=== PATIENT | female | born 1965 | race Caucasian/White ===

== ENCOUNTER → 2016-07-15 | Outpatient (CLI) | payer OTHER ==
[2016-07-15 09:37] LABS: MEAN CORPUSCULAR HEMOGLOBIN 31.5 pg (27.0-33.0); MEAN CORPUSCULAR HGB CONC 34.1 g/dl (32.0-36.5); MEAN CORPUSCULAR VOLUME 92.6 fl (80.0-96.0); WHITE BLOOD COUNT 7.7 K/mm3 (4.0-10.0)
[2016-07-15 10:34] LABS: ALBUMIN 3.7 GM/DL (3.2-5.2); ALBUMIN/GLOBULIN RATIO 1.06 (1.00-1.93); ALKALINE PHOSPHATASE 97 U/L (45-117); ALT/SGPT 18 U/L (12-78); ANION GAP 8 MEQ/L (8-16); AST/SGOT 15 U/L (15-37); BILIRUBIN,TOTAL 0.4 MG/DL (0.2-1.0); BLOOD UREA NITROGEN 18 MG/DL (7-18); CALCIUM LEVEL 8.6 MG/DL (8.5-10.1); CARBON DIOXIDE LEVEL 30 MEQ/L (21-32); CHLORIDE LEVEL 105 MEQ/L (98-107); CHOLESTEROL LEVEL 171 MG/DL (<200); CREATININE FOR GFR 0.83 MG/DL (0.55-1.02); GLOMERULAR FILTRATION RATE > 60.0 (>58); GLUCOSE, FASTING 85 MG/DL (70-105); POTASSIUM SERUM 4.8 MEQ/L (3.5-5.1); SODIUM LEVEL 143 MEQ/L (136-145); TOTAL PROTEIN 7.2 GM/DL (6.4-8.2); TRIGLYCERIDES LEVEL 49 MG/DL (<150)
== END ==
LOC: M WUC 08:15
PROVIDERS: ATTEND Nurse Practitioner Adult Health
DX: Z00.00 Encounter for general adult medical examination without abnormal findings (principal); E55.9 Vitamin D deficiency, unspecified

== ENCOUNTER → 2016-08-19 | Outpatient (CLI) | payer OTHER ==
[2016-08-19 10:59] LABS: BASO % 0.5 % (0.0-1.0); EOS # 0.2 K/mm3 (0.0-0.50); EOS % 1.8 % (0.0-3.0); LARGE UNSTAINED CELL # 0.2 K/mm3 (0.0-0.4); LARGE UNSTAINED CELL % 2.3 % (0.0-4.0); LYMPH # 2.5 K/mm3 (1.5-4.5); MEAN CORPUSCULAR HEMOGLOBIN 32.2 pg (27.0-33.0); MEAN CORPUSCULAR HGB CONC 34.3 g/dl (32.0-36.5); MEAN CORPUSCULAR VOLUME 93.9 fl (80.0-96.0); MONO # 0.5 K/mm3 (0.0-0.8); MONO % 5.2 % (0.0-5.0); NEUTROPHILS # 5.2 K/mm3 (1.8-7.7); NEUTROPHILS % 61.1 % (36.0-66.0); PLATELET COUNT, AUTOMATED 262 k/mm3 (150-450); RED CELL DISTRIBUTION WIDTH 12.4 % (11.5-14.5); WHITE BLOOD COUNT 8.5 K/mm3 (4.0-10.0)
[2016-08-19 11:24] LABS: ANION GAP 5 MEQ/L (8-16); BLOOD UREA NITROGEN 12 MG/DL (7-18); CALCIUM LEVEL 8.6 MG/DL (8.5-10.1); CARBON DIOXIDE LEVEL 31 MEQ/L (21-32); CHLORIDE LEVEL 105 MEQ/L (98-107); CREATININE FOR GFR 0.74 MG/DL (0.55-1.02); GLOMERULAR FILTRATION RATE > 60.0 (>58); GLUCOSE, FASTING 90 MG/DL (70-105); POTASSIUM SERUM 4.6 MEQ/L (3.5-5.1); SODIUM LEVEL 141 MEQ/L (136-145)
== END ==
LOC: M WUC 09:41
PROVIDERS: ATTEND Podiatrist
DX: Z01.812 Encounter for preprocedural laboratory examination (principal); M71.371 Other bursal cyst, right ankle and foot

== ENCOUNTER → 2016-09-03 | Day surgery (SDC) | payer OTHER ==
[~2016-09-03] VITALS: Ht 162.6 cm; Wt 73.5 kg
[~2016-09-03] MED LIST: BACITRACIN PWD 50,000 UNITS VIAL As Ordered ONE; BUPIVACAINE HCL 0.5% 30 ML VIAL As Ordered ONE; LIDOCAINE 2% INJ 100 MG/5 ML SDV (FOR ANES.) As Ordered ONE; LIDOCAINE 2% MDV 20 ML VIAL As Ordered ONE; LR 1,000 ML IV ONE; LR 1,000 ML IV SCH; MIDAZOLAM INJ 2 MG/2 ML VIAL (J2250) As Ordered ONE; MIDAZOLAM INJ 2 MG/2 ML VIAL (J2250) IV PRN; NEOSPORIN GU IRRIG 20 ML VIAL As Ordered ONE; ONDANSETRON 4MG/2ML VIAL (J2405) As Ordered ONE; ONDANSETRON 4MG/2ML VIAL (J2405) IV PRN; PERCOCET 5MG/325MG TAB PO PRN; PROPOFOL 500 MG/50 ML VIAL As Ordered ONE; dexameTHASONE 4 MG/ML 1ML VIAL (J1100) As Ordered ONE; fentaNYL 100 MCG/2 ML INJECTION (J3010) As Ordered ONE; fentaNYL 100 MCG/2 ML INJECTION (J3010) IV PRN
[2016-09-03 08:56] LABS: CONTROL LINE UCG INT CTR LINE PRESENT
[2016-09-03 13:45] VITALS: BP 133/84
--- NOTE | 2016-09-03 13:50 | REP ---
RIGHT FOOT SERIES: Three views. HISTORY: Postop. FINDINGS: Three views of the right foot obtained through overlying dressing demonstrate two pins in place transfixing the distal first metatarsal osteotomy in position. The patient status post bunion repair. Adjacent soft tissue swelling and postoperative emphysema is seen. Signed by Ismael Lee MD 09/03/2016 03:06 P
--- NOTE | 2016-09-05 08:58 | RO ---
DATE OF PROCEDURE: 09/03/2016 PREPROCEDURE DIAGNOSES: 1. Hallux limitus deformity right foot. 2. Mucinoid/ganglionic cyst second toe right foot. 3. 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 POSTPROCEDURE DIAGNOSES: 1. Hallux limitus deformity right foot. 2. Mucinoid/ganglionic cyst second toe right foot. 3. 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 PROCEDURE: 1. Cheilectomy first metatarsal phalangeal joint right foot with Hohmann osteotomy with plantar flexion and transverse location with internal screw fixation 3.0 mm x 18 mm x 1 and a 3.0 x 20 mm x 1. 2. Excision of ganglionic cyst second toe right foot. 3. Distal interphalangeal joint arthroplasty second toe right foot. SURGEON: Uriah Alexander DPM STRUCTURES ASSEMBLER: None. ANESTHESIA: Local MAC converted to general anesthesia. HARDWARE UTILIZED: [place] Dart-Fire 3.0 x 18 and 3.0 x 20 mm screw. DESCRIPTION OF OPERATION: On 09/03/2016, this 50-year-old white female was taken from her hospital room to the operating room and placed on the operating room table in supine position. Following the induction of IV sedation and local and regional anesthesia, the following procedure was performed: CHEILECTOMY FIRST METATARSAL PHALANGEAL JOINT RIGHT FOOT: Attention was directed to the patient's right foot where there was noted to be a hallux limitus deformity. At this time, a 5 cm incision was placed over the first metatarsal phalangeal joint of the right foot. The incision was deepened through the subcutaneous tissues and all coursing venous tributaries were identified, underscored, clamped, cut, ligated, electrocoagulated as necessary. A linear capsulotomy was then performed in the same plane as the original skin incision and capsule and periosteal structures were dissected free exposing spurring over the dorsal aspect of the first metatarsal phalangeal joint. Utilizing a power saw, the dorsal 20% of the spurring around the dorsal aspect of the first metatarsal was resected. The medial eminence was also resected with a power saw medial to the sesamoidal groove from distal to proximal through and through. Attention was then directed into the intermetatarsal space where dissection was carried down to the level of the conjoined tendon which was released. The wound was flushed with copious amounts of dilute bacitracin, neomycin and polymyxin B solution. Attention was then directed to the first metatarsal where an osteotomy was performed just proximal to the plantar articular cartilage through and through. The capital fragment was plantar flexed 2 mm and transposed approximately 40% of the width of the shaft of the first metatarsal and fixated with two cannulated compression screws 3.0 x 18 and 3.0 x 20 mm screw. They did penetrate the inferior cartilage on direct visualization. The osteotomy was noted to be stable in all three cardinal planes. The redundant cortical spike was then osteotomized from dorsal to plantar through and through and rasped smooth with a hand held rasp. Attention was then directed toward closure where the capsular structures were coapted and maintained using #3-0 Vicryl in a simple interrupted type fashion. Subcutaneous tissues were coapted and maintained using #4-0 Monocryl in a simple interrupted type fashion. Skin incision coapted and maintained using #5-0 Monocryl in a continuous subcuticular type fashion. Attention was then directed to the patient's second toe of the right foot where the following procedure was performed: EXCISION OF GANGLIONIC CYST DORSAL SURFACE SECOND TOE RIGHT FOOT: Attention was noted where there was a ganglionic/mucinoid cyst of the second toe at the distal interphalangeal joint. Two semi-elliptical incisions were placed around this ganglionic cyst and dissection was carried down to the level of the tendinous structures and this ganglionic cyst was removed. The following procedure was performed: DISTAL INTERPHALANGEAL JOINT ARTHROPLASTY SECOND TOE RIGHT FOOT: The excision was then extended on the previously placed excision allowing exposure to the distal interphalangeal joint. A transverse tenotomy and capsulotomy was then performed identifying the distal interphalangeal joint. Utilizing a power saw, an osteotomy was performed through the mid shaft of the middle phalanx from dorsal to plantar and this was extirpated from the wound. The wound was flushed with copious amounts of dilute bacitracin, neomycin and polymyxin B solution. The cartilage on the base of the distal phalanx was similarly osteotomized from dorsal to plantar. The extensor tendon to the second toe was then repaired with a four stranded braided loop suture with a four stranded core repair with a modified Lopez stitch. The skin was coapted and maintained using #4-0 Prolene in a simple interrupted and horizontal mattress type fashion. Following the completion of the surgical procedure, 4 mg of dexamethasone sodium phosphate 1 mL was instilled proximal to the surgical site. Attention was directed towards bandaging where a sterile compressive bandage was applied consisting of Adaptic, 4x4s, 4x4 splints, Jens, Kerlix and Coban. The ankle pneumatic tourniquet was rapidly deflated and instantaneous capillary filling time was noted to digits of 1 through 5 of the patient's right foot. The patient having apparently tolerated the surgical procedure well was taken from the operating room (OR) to the recovery room with vital signs stable and the patient afebrile for further monitoring by the anesthesia department. All surgical specimens removed during the operative procedure were sent to pathology for gross and microscopic examination. Postoperative instructions will be given upon discharge.
== END | disposition home or self-care (01) ==
LOC: M SDC 08:15
PROVIDERS: ATTEND Podiatrist
DX: M20.5X1 Other deformities of toe(s) (acquired), right foot (principal); M67.471 Ganglion, right ankle and foot; M20.41 Other hammer toe(s) (acquired), right foot; K21.9 Gastro-esophageal reflux disease without esophagitis; Z88.2 Allergy status to sulfonamides
CPT/HCPCS: 28092; 28285; 28289; 73630; 84703; 88300; 88304; 97116; C1713; J0690; J1100; J2250; J2405; J3010

== ENCOUNTER → 2016-12-21 | Outpatient (REF) | payer OTHER | LOC: M SFHCPLAZ 13:18 | PROVIDERS: ATTEND Nurse Practitioner Adult Health | DX: Z12.4 Encounter for screening for malignant neoplasm of cervix (principal) ==

== ENCOUNTER → 2017-03-11 | Outpatient (CLI) | payer OTHER ==
[2017-03-11 10:05] LABS: BASO # 0.1 10^3/uL (0.0-0.2); BASO % 0.7 % (0.0-1.0); EOS # 0.1 10^3/uL (0.0-0.50); EOS % 1.5 % (0.0-3.0); IMMATURE GRANULOCYTE % 0.4 % (0-0); LYMPH # 2.7 10^3/uL (1.5-4.5); LYMPH % 31.5 % (24.0-44.0); MEAN CORPUSCULAR HEMOGLOBIN 30.8 pg (27.0-33.0); MEAN CORPUSCULAR HGB CONC 33.8 g/dl (32.0-36.5); MEAN CORPUSCULAR VOLUME 91.1 fl (80.0-96.0); MONO # 0.6 10^3/uL (0.0-0.8); NEUTROPHILS # 5.1 10^3/uL (1.8-7.7); NEUTROPHILS % 58.9 % (36.0-66.0); PLATELET COUNT, AUTOMATED 289 10^3/uL (150-450); RED CELL DISTRIBUTION WIDTH 11.9 % (11.5-14.5); WHITE BLOOD COUNT 8.6 10^3/uL (4.0-10.0)
[2017-03-11 10:19] LABS: ANION GAP 8 MEQ/L (8-16); BLOOD UREA NITROGEN 14 MG/DL (7-18); CARBON DIOXIDE LEVEL 30 MEQ/L (21-32); CHLORIDE LEVEL 103 MEQ/L (98-107); CREATININE FOR GFR 0.85 MG/DL (0.55-1.02); GLOMERULAR FILTRATION RATE > 60.0 (>58); GLUCOSE, FASTING 89 MG/DL (70-105); POTASSIUM SERUM 3.8 MEQ/L (3.5-5.1); SODIUM LEVEL 141 MEQ/L (136-145)
--- NOTE | 2017-03-11 14:49 | ECGEPIP ---
Stationary ECG Study [facility] Test Date: 2017-03-11 Pat Name: SITA ALVAREZ Department: Room: - Gender: F Machine Ii Cutter: RUBA : 1965 Requested By: Uriah Alexander Order Number: [id number] Reading MD: Eligio Dalal Measurements Intervals [place] Rate: 89 P: 3 RI: 170 QRS: -11 QRSD: 85 T: -21 QT: 342 QTc: 417 Interpretive Statements SINUS RHYTHM MINIMAL VOLTAGE CRITERIA FOR LVH, CONSIDER NORMAL VARIANT POOR R WAVE PROGRESSION No prior tracing in the system Electronically Signed On 03-11-2017 14:49:20 EST by Eligio Dalal
== END ==
LOC: M LAB 09:12
PROVIDERS: ATTEND Podiatrist
DX: M20.62 Acquired deformities of toe(s), unspecified, left foot (principal)

== ENCOUNTER 2017-03-25 10:43 | Day surgery (SDC) | payer OTHER ==
[~2017-03-25] VITALS: Ht 162.6 cm; Wt 77.2 kg
[~2017-03-25 10:43] MED LIST changes: -BACITRACIN PWD 50,000 UNITS VIAL As Ordered ONE; -BUPIVACAINE HCL 0.5% 30 ML VIAL As Ordered ONE; +CLAR1TAB2 PO; -LIDOCAINE 2% INJ 100 MG/5 ML SDV (FOR ANES.) As Ordered ONE; -LIDOCAINE 2% MDV 20 ML VIAL As Ordered ONE; -LR 1,000 ML IV ONE; -LR 1,000 ML IV SCH; -MIDAZOLAM INJ 2 MG/2 ML VIAL (J2250) As Ordered ONE; -MIDAZOLAM INJ 2 MG/2 ML VIAL (J2250) IV PRN; -NEOSPORIN GU IRRIG 20 ML VIAL As Ordered ONE; -ONDANSETRON 4MG/2ML VIAL (J2405) As Ordered ONE; -ONDANSETRON 4MG/2ML VIAL (J2405) IV PRN; -PERCOCET 5MG/325MG TAB PO PRN; -PROPOFOL 500 MG/50 ML VIAL As Ordered ONE; -dexameTHASONE 4 MG/ML 1ML VIAL (J1100) As Ordered ONE; -fentaNYL 100 MCG/2 ML INJECTION (J3010) As Ordered ONE; -fentaNYL 100 MCG/2 ML INJECTION (J3010) IV PRN
[2017-03-25] MEDS ORDERED: LR 1,000 ML IV ONE (11:00)
[2017-03-25 12:04] LABS: CONTROL LINE UCG INT CTR LINE PRESENT
[2017-03-25] MEDS ORDERED: BACITRACIN PWD 50,000 UNITS VIAL As Ordered ONE (13:34)
[2017-03-25] MEDS ORDERED: LIDOCAINE 2% MDV 20 ML VIAL As Ordered ONE (13:35)
[2017-03-25] MEDS ORDERED: dexameTHASONE 4 MG/ML 1ML VIAL (J1100) As Ordered ONE (13:35)
[2017-03-25] MEDS ORDERED: BUPIVACAINE HCL 0.5% 30 ML VIAL As Ordered ONE (13:36)
[2017-03-25] MEDS ORDERED: NEOSPORIN GU IRRIG 20 ML VIAL As Ordered ONE (13:37)
[2017-03-25] MEDS ORDERED: PROPOFOL 200 MG/20 ML VIAL As Ordered ONE (14:00)
[2017-03-25] MEDS ORDERED: MIDAZOLAM INJ 2 MG/2 ML VIAL (J2250) As Ordered ONE (14:00)
[2017-03-25] MEDS ORDERED: fentaNYL 100 MCG/2 ML INJECTION (J3010) As Ordered ONE (14:00)
[2017-03-25] MEDS ORDERED: LIDOCAINE 2% INJ 100 MG/5 ML SDV (FOR ANES.) As Ordered ONE (14:00)
[2017-03-25] MEDS ORDERED: ONDANSETRON 4MG/2ML VIAL (J2405) As Ordered ONE (14:00)
[2017-03-25] MEDS ORDERED: METOCLOPRAMIDE INJ 10MG/2ML VIAL (J2765) As Ordered ONE (14:00)
[2017-03-25] MEDS ORDERED: KETOROLAC 60 MG/2 ML VIAL (J1885) As Ordered ONE (15:41)
[2017-03-25] MEDS ORDERED: ONDANSETRON 4MG/2ML VIAL (J2405) IV PRN (16:15)
[2017-03-25] MEDS ORDERED: PERCOCET 5MG/325MG TAB PO PRN (16:15)
[2017-03-25] MEDS ORDERED: LR 1,000 ML IV SCH (16:15)
[2017-03-25 17:26] VITALS: BP 172/90
--- NOTE | 2017-03-25 17:30 | REP ---
PORTABLE LEFT FOOT THREE VIEWS: HISTORY: Post-op. The patient is status-post osteotomy of the 1st and 2nd metatarsals. Metal screws are present in the heads of the first and second metatarsals. There is no acute fracture or dislocation. There is narrowing of the first tarsal metatarsal joint space. A plastic cast is present. IMPRESSION:The patient is status-post osteotomy of the 1st and 2nd metatarsals. Signed by Mendez Worley MD 03/25/2017 06:51 P
[2017-03-25] MEDS ORDERED: DESFLURANE 240 ML INHALANT As Ordered ONE (20:56)
[2017-03-25] MEDS ORDERED: SEVOFLURANE INHAL SOLN 250 ML BTL As Ordered ONE (21:03)
--- NOTE | 2017-03-26 10:42 | RO ---
DATE OF PROCEDURE: 03/25/2017 PREPROCEDURE DIAGNOSIS: Hallux valgus metatarsus left foot and arthritis second metatarsophalangeal joint left foot. POSTPROCEDURE DIAGNOSIS: Hallux valgus metatarsus left foot and arthritis second metatarsophalangeal joint left foot. OPERATIVE PROCEDURE: 1. Reverdin-[place] Eddie bunionectomy and internal screw fixation, 3.0 mm x 16.0 mm times one left foot. 2. Remodeling with Arthrosurface desirae cap implant, 12 mm x 1 mm x 1.5 mm offset second metatarsophalangeal joint left foot. SURGEON: Uriah Alexander DPM SNOWBOARD INSTRUCTOR: None. ANESTHESIA: Local Monitored anesthesia care (MAC). IRRIGATION: Dilute bacitracin, neomycin and polymyxin B solution. HEMOSTASIS: Ankle pneumatic tourniquet at 200 mmHg for 72 minutes. DESCRIPTION OF PROCEDURE: On 03/25/2017, this 51-year-old white female was taken from her hospital room to the operating room and placed on the operating room table in the supine position. Following the induction of IV sedation and local and regional anesthesia, the left lower extremity was prepped and draped in the usual aseptic manner. Attention was directed to the patient's left foot. There was noted to be a moderately severe hallux valgus deformity. At this time a 6 cm incision was placed over the first metatarsophalangeal joint medial to the extensor tendon. The incision was deepened into the subcutaneous tissues and all coursing venous tributaries were identified, underscored, clamped, cut ligated, and electrocoagulated as necessary. A linear capsulotomy was performed in the same plane as the original skin incision. The capsule and periosteal structures were then dissected free in one continuous layer dorsally, medially and laterally, thus creating a capsule and periosteal type envelope. This delivered into view the hypertrophied medial eminence of the first metatarsal which was osteotomized from distal to proximal through and through. Attention was then directed to the first intermetatarsal space where dissection was carried down to the level of the conjoined tendon which were sharply dissected free from the fibular sesamoid. Attention was then directed to the medial surface of the first metatarsal where a modified L-shaped osteotomy was performed with a wedge osteotomy on the dorsal surface of the first metatarsal. This reduced the proximal interarticular set angle. Upon completion of this three cut osteotomy, the capital fragment was rotated and transposed in a lateral direction. The osteotomy was then fixated with a 3.0 x 16 mm cannulated compression screw. The osteotomy was noted to be stable in all three cardinal planes. The redundant cortical spike was then osteotomized for dorsal to plantar, through and through. Attention was then directed toward fixation with the capsular structures coapted and maintained using #2-0 Monocryl in a simple interrupted type fashion. Subcutaneous tissues were coapted and maintained using #4-0 Monocryl in a simple interrupted type fashion. Skin incision coapted and maintained utilizing #5-0 Monocryl in a continuous type cuticular type fashion. Attention was then directed to the second metatarsophalangeal joint where the following procedure was performed. REMODELING OF THE SECOND METATARSOPHALANGEAL JOINT WITH ARTHREX HEMICAP RESURFACING IMPLANT, 12 MM X 1 MM X 1.5 MM OFFSET: Attention was directed to the patient's second metatarsophalangeal joint where an incision measuring approximately 5 cm in length was placed over the second metatarsophalangeal joint. Dissection was then carried down to the level of the second metatarsophalangeal joint. The extensor tendons were retracted in a lateral direction. A linear capsulotomy was performed in the same plane as the original skin incision. A large osteophyte was noted on the dorsal surface of the first metatarsal was removed. Almost complete destruction was noted of the second metatarsal. Spurring was noted on the dorsal and lateral surfaces of the proximal phalanx. These were remodeled with a rongeur. Utilizing standard technique, a K-wire was driven down the second metatarsal utilizing C-Arm to verify dorsal to plantar and medial to lateral orientation. A 7 mm tapered post was then drilled down the second metatarsal. Utilizing the standard technique, the metatarsal was reamed and resurfaced. A sizer was utilized to determine the appropriate size of the implant and a 12 mm x 1 mm x 1.5 mm offset implant was then placed and malleted firmly into place. It was noted to be stable in all three cardinal planes and was flushed with copious amounts of dilute bacitracin, neomycin and polymyxin B solution. Unrestricted range of motion is noted of the second metatarsophalangeal joint. Attention was directed towards closure where the capsular structures were coapted and maintained utilizing #2-0 Monocryl in a simple interrupted type fashion. Subcutaneous tissues coapted and maintained using #4-0 Monocryl in a simple interrupted type fashion. Skin incisions were coapted and maintained utilizing #5-0 Monocryl in a continuous subcuticular type fashion. This was additionally reinforced with Steri-Strips. Attention was then directed towards bandaging, where a sterile compressive bandage applied consisting of Adaptic, 4 x 4s, 4 x 4 splints, Jens, Kerlix and Coban. Ankle pneumatic tourniquet was rapidly deflated and instantaneous capillary refill time was noted in digits 1 through 5 of the patients left foot. The patient having apparently tolerated the surgical procedure well was taken from the OR to the recovery room, vital signs stable, the patient afebrile for further monitoring by the anesthesia department. All surgical specimens removed during the operative procedure sent to pathology for gross and microscopic examination. Postoperative instructions given upon discharge.
== END 2017-03-25 17:33 | disposition home or self-care (01) ==
LOC: M SDC 10:43
PROVIDERS: ATTEND Podiatrist
DX: M20.12 Hallux valgus (acquired), left foot (principal); M19.072 Primary osteoarthritis, left ankle and foot; K21.9 Gastro-esophageal reflux disease without esophagitis; Z88.2 Allergy status to sulfonamides; Z79.899 Other long term (current) drug therapy
CPT/HCPCS: 28296; 28899; 73630; 84703; 88300; C1713; J0690; J1100; J1885; J2250; J2405; J2765; J3010; L8641

== ENCOUNTER → 2017-11-28 | Outpatient (CLI) | payer OTHER ==
[2017-11-28 09:11] LABS: HEMATOCRIT 43.2 % (36.0-47.0); HEMOGLOBIN 14.4 g/dl (12.0-15.5); MEAN CORPUSCULAR HEMOGLOBIN 31.6 pg (27.0-33.0); MEAN CORPUSCULAR HGB CONC 33.3 g/dl (32.0-36.5); MEAN CORPUSCULAR VOLUME 94.9 fl (80.0-96.0); PLATELET COUNT, AUTOMATED 249 10^3/uL (150-450); RED BLOOD COUNT 4.55 10^6/uL (4.00-5.40); RED CELL DISTRIBUTION WIDTH 12.7 % (11.5-14.5); WHITE BLOOD COUNT 8.3 10^3/uL (4.0-10.0)
[2017-11-28 09:50] LABS: ALBUMIN 3.8 GM/DL (3.2-5.2); ALBUMIN/GLOBULIN RATIO 1.03 (1.00-1.93); ALKALINE PHOSPHATASE 117 U/L (45-117); ALT/SGPT 22 U/L (12-78); ANION GAP 7 MEQ/L (8-16); AST/SGOT 15 U/L (7-37); BILIRUBIN,TOTAL 0.5 MG/DL (0.2-1.0); BLOOD UREA NITROGEN 16 MG/DL (7-18); CALCIUM LEVEL 8.7 MG/DL (8.5-10.1); CARBON DIOXIDE LEVEL 30 MEQ/L (21-32); CHLORIDE LEVEL 106 MEQ/L (98-107); CHOLESTEROL LEVEL 146 MG/DL (<200); CHOLESTEROL RISK RATIO 2.085 (<5); CREATININE FOR GFR 0.93 MG/DL (0.55-1.30); GLOMERULAR FILTRATION RATE > 60.0 (>51); GLUCOSE, FASTING 82 MG/DL (70-100); HDL CHOLESTEROL 70 MG/DL (>40); LDL CHOLESTEROL 64.6 MG/DL (<100); NON-HDL-C 76 MG/DL; POTASSIUM SERUM 4.5 MEQ/L (3.5-5.1); SODIUM LEVEL 143 MEQ/L (136-145); TOTAL PROTEIN 7.5 GM/DL (6.4-8.2); TRIGLYCERIDES LEVEL 57 MG/DL (<150)
[2017-11-28 09:53] LABS: TOTAL 25(OH) VITAMIN D 22.2 NG/ML (30.0-100.0)
== END ==
LOC: M WUC 08:20
DX: Z00.00 Encounter for general adult medical examination without abnormal findings (principal); E55.9 Vitamin D deficiency, unspecified
CPT/HCPCS: 84443

== ENCOUNTER → 2023-02-17 | Outpatient (REF) | payer OTHER | LOC: M SFHCPLAZ 10:34 | PROVIDERS: ATTEND Student in an Organized Health Care Education/Training Program | DX: Z53.9 Procedure and treatment not carried out, unspecified reason (principal) ==

== ENCOUNTER → 2023-02-21 | Outpatient (CLI) | payer OTHER ==
[2023-02-21 11:17] LABS: BASO # 0.1 10^3/uL (0.0-0.2); BASO % 0.7 % (0.0-1.0); EOS # 0.2 10^3/uL (0.0-0.5); EOS % 2.3 % (0.0-3.0); HEMATOCRIT 44.4 % (36.0-47.0); HEMOGLOBIN 14.9 g/dl (12.0-15.5); LYMPH # 2.4 10^3/uL (1.5-5.0); LYMPH % 24.9 % (24.0-44.0); MEAN CORPUSCULAR HEMOGLOBIN 31.4 pg (27.0-33.0); MEAN CORPUSCULAR HGB CONC 33.6 g/dl (32.0-36.5); MEAN CORPUSCULAR VOLUME 93.7 fl (80.0-96.0); MONO # 0.6 10^3/uL (0.0-0.8); MONO % 6.6 % (2.0-8.0); NEUTROPHILS # 6.2 10^3/uL (1.5-8.5); NEUTROPHILS % 65.3 % (36.0-66.0); PLATELET COUNT, AUTOMATED 295 10^3/uL (150-450); RED BLOOD COUNT 4.74 10^6/uL (4.00-5.40); WHITE BLOOD COUNT 9.5 10^3/uL (4.0-10.0)
[2023-02-21 11:38] LABS: ALBUMIN 3.8 G/DL (3.2-5.2); ALKALINE PHOSPHATASE 123 U/L (46-116); ALT/SGPT 18 U/L (7.0-40); AST/SGOT 16 U/L (<34); BILIRUBIN,TOTAL 0.6 MG/DL (0.3-1.2); BLOOD UREA NITROGEN 18 MG/DL (9-23); CALCIUM LEVEL 9.1 MG/DL (8.5-10.1); CARBON DIOXIDE LEVEL 29 MMOL/L (20-31); CHLORIDE LEVEL 104 MMOL/L (98-107); CHOLESTEROL LEVEL 184 MG/DL (<200); CHOLESTEROL RISK RATIO 3.21 (<5); CREATININE FOR GFR 0.78 MG/DL (0.55-1.30); GLOMERULAR FILTRATION RATE > 60.0 (>51); GLUCOSE, FASTING 91 MG/DL (60-100); HDL CHOLESTEROL 57.2 MG/DL (>40); NON-HDL-C 126.8 MG/DL; POTASSIUM SERUM 4.9 MMOL/L (3.5-5.1); SODIUM LEVEL 142 MMOL/L (136-145); TOTAL PROTEIN 6.9 G/DL (5.7-8.2); TRIGLYCERIDES LEVEL 139 MG/DL (<150)
[2023-02-21 11:40] LABS: TOTAL 25(OH) VITAMIN D 19.3 NG/ML (20.0-100.0)
[2023-02-21 12:05] LABS: HIV 1&2 SCREEN NEGATIVE (NEGATIVE)
[2023-02-21 12:14] LABS: HEPATITIS C VIRUS ABY INDEX 0.04 INDEX (<0.8)
== END ==
LOC: M PLALAB 07:07
PROVIDERS: ATTEND Student in an Organized Health Care Education/Training Program
DX: E55.9 Vitamin D deficiency, unspecified (principal); Z76.89 Persons encountering health services in other specified circumstances

== ENCOUNTER → 2023-03-29 | Outpatient (REF) | payer OTHER | LOC: M SFHCWAGY 13:37 | PROVIDERS: ATTEND Student in an Organized Health Care Education/Training Program | DX: Z12.4 Encounter for screening for malignant neoplasm of cervix (principal) ==

== ENCOUNTER 2023-05-06 09:49 | Day surgery (SDC) | payer OTHER ==
[~2023-05-06] VITALS: Ht 162.6 cm; Wt 81.3 kg
[~2023-05-06 09:49] MED LIST changes: +NS 1,000 ML IV ONE
[2023-05-06] MEDS ORDERED: propofoL 200 MG/20 ML VIAL As Ordered ONE (11:06)
[2023-05-06] MEDS ORDERED: LIDOCAINE 2% 100MG/5ML SDV (FOR ANES.) As Ordered ONE (11:06)
[2023-05-06] MEDS ORDERED: LABETALOL 100MG/20ML VIAL As Ordered ONE (11:22)
[2023-05-06] MEDS ORDERED: hydrALAZINE 20MG/ML 1ML VIAL As Ordered ONE (12:09)
[2023-05-06 13:25] VITALS: BP 188/84; TEMP 98.2; O2SAT 100
== END 2023-05-06 13:20 | disposition home or self-care (01) ==
LOC: M OPP 09:49
PROVIDERS: ATTEND Surgery
DX: Z12.11 Encounter for screening for malignant neoplasm of colon (principal); K57.30 Diverticulosis of large intestine without perforation or abscess without bleeding; Z79.1 Long term (current) use of non-steroidal anti-inflammatories (NSAID); Z88.2 Allergy status to sulfonamides
CPT/HCPCS: 45378; J0360; J1920

== ENCOUNTER → 2024-01-26 | Outpatient (CLI) | payer OTHER ==
[~2024-01-26] MED LIST changes: -NS 1,000 ML IV ONE
== END ==
LOC: M WHC 07:34
PROVIDERS: ATTEND Student in an Organized Health Care Education/Training Program
DX: Z12.31 Encounter for screening mammogram for malignant neoplasm of breast (principal)